=== PATIENT | male | born 1985 | race Caucasian/White ===

== ENCOUNTER 2017-11-17 17:32 | Emergency (ER) | payer OTHER ==
[2017-11-17 17:39] VITALS: BP 144/90
[2017-11-17] MEDS ORDERED: PENICILLIN VK 250 MG TABLET PO STA ×2 (20:33→20:37)
[2017-11-17] MEDS ORDERED: oxyCOD/ACETAMIN 5 MG/325 MG TABLET PO STA (20:33)
--- NOTE | 2017-11-17 20:34 | ED Physician Documentation ---
PD HPI HEENT - Stated complaint Stated Complaint: DENTAL PAIN - Chief complaint Chief Complaint: Heent - History obtained from History obtained from: Patient, Family - History of Present Illness Timing - onset: How many days ago (2) Timing - details: Gradual onset, Still present Location: Tooth, Mouth Worsens: Swalllowing Associated symptoms: Facial swelling. No: Fever Similar symptoms before: Work up / diagnostics, Treatment Recently seen: Not recently seen - Additional information Additional information: Patient is a 31 year old male with no significant past medical history who is presenting to the emergency department for dental pain and facial swelling. patient states that it has been going on for a few days, but he could not get into the dental clinic. Patient states that he has been taking motrin and tylenol at home with littler relief. Review of Systems Constitutional: denies: Fever, Chills Eyes: reports: Reviewed and negative Ears: reports: Ear pain Nose: denies: Congestion, Sinus pressure / pain Throat: reports: Dental pain / toothache, Oral lesions / sores Cardiac: denies: Chest pain / pressure, Palpitations Respiratory: denies: Cough, Wheezing GI: denies: Nausea, Vomiting : reports: Reviewed and negative Skin: reports: Reviewed and negative Musculoskeletal: reports: Reviewed and negative Neurologic: denies: Generalized weakness, Focal weakness, Headache Immunocompromised: denies: Immunocompromised PD PAST MEDICAL HISTORY - Past Surgical History Past Surgical History: No HEENT: Tonsil/Adenoidectomy - Present Medications Home Medications: Ambulatory Orders Medication Instructions Recorded Confirmed Chlorhexidine Gluconate 15 ml MM Q6HR #473 ml 11/17/17 Penicillin V Potassium 500 mg PO Q6HR 10 Days tablet 11/17/17 - Allergies Allergies/Adverse Reactions: Allergies Allergy/AdvReac Type Severity Reaction Status Date / Time No Known Drug Allergies Allergy Verified 11/17/17 17:38 - Social History Does the pt smoke?: Yes Smoking Status: Current every day smoker Does the pt drink ETOH?: Yes Does the pt have substance abuse?: No - Immunizations Immunizations are current?: Yes - POLST Patient has POLST: No PD ED PE NORMAL - Vitals Vital signs reviewed: Yes - General General: Alert and oriented X 3, Well developed/nourished - HEENT HEENT: Atraumatic, PERRL - Neck Neck: Supple, no meningeal sign, No adenopathy - Cardiac Cardiac: RRR, No murmur - Respiratory Respiratory: No respiratory distress - Abdomen Abdomen: Non distended - Derm Derm: Normal color, Warm and dry - Extremities Extremities: No deformity - Neuro Neuro: Alert and oriented X 3, No motor deficit, No sensory deficit, Normal speech - Psych Psych: Normal mood PD ED PE EXPANDED - HEENT HEENT: Dental decay (multiple dental caries, but no drainable abscess or fluid collection, ), Other (facial swelling on left) Results - Vitals Vitals: Vital Signs - 24 hr 11/17/17 17:36 Temperature 36.3 C L Heart Rate 83 Respiratory 18 Rate Blood Pressure 144/90 H O2 Saturation 99 Oxygen O2 Source Room air PD MEDICAL DECISION MAKING - ED course Complexity details: reviewed old records, re-evaluated patient, considered differential, d/w patient, d/w family ED course: patient was seen and examined at bedside. Patient did have a dental pain, but no drainable abscess or fluid collection. Patient was treated with percocet and pen vk. Patient required no further work up and was stable for discharge with outpatient follow up. Departure - Departure Disposition: 01 Home, Self Care Clinical Impression: Dental abscess Condition: Good Instructions: ED Abscess Tooth Follow-Up: primary,care provider [Other] - Within 1 week Prescriptions: Chlorhexidine Gluconate 15 ml MM Q6HR #473 ml Penicillin V Potassium 500 mg PO Q6HR 10 Days tablet Comments: Your symptoms today are being caused by an infected tooth. There is no drainable abscess at this time but you will need to be started on antibiotics. You had your first dose tonight, and will need to take it 4 times a day. You will also need to use the antibiotic mouth rinse. you should use it after every meal and before bed. Ultimately you will need to follow up with your dentist. You should take ibuprofen 600mg and tylenol 1000mg as needed for pain. Discharge Date/Time: 11/17/17 20:42
== END 2017-11-17 20:42 | disposition home or self-care (01) ==
LOC: ED 17:32
DX: K04.7 Periapical abscess without sinus (principal); F17.200 Nicotine dependence, unspecified, uncomplicated
CPT/HCPCS: 99282; 99283; A9270

== ENCOUNTER 2017-11-18 16:11 | Emergency (ER) | payer OTHER ==
[2017-11-18] MEDS ORDERED: HYDROmorphone 1 MG/ML SYRINGE IVP STA ×2 (16:32→17:09)
[2017-11-18] MEDS ORDERED: CLINDAMYCIN 900 MG/50 ML 50 ML IV ONE (16:32)
[2017-11-18] MEDS ORDERED: BUFFERED LIDOCAINE 10 ML SYRINGE SUBQ STA (16:32)
--- NOTE | 2017-11-18 16:34 | ED Physician Documentation ---
PD HPI HEENT - Stated complaint Stated Complaint: LEFT JAW SWELLING - Chief complaint Chief Complaint: Heent - History obtained from History obtained from: Patient - History of Present Illness Timing - onset: Other (Seen here last night for a dental abscess which despite taking penicillin in the interim has worsened significantly with facial swelling but no fevers. Pain is severe.) Review of Systems Constitutional: denies: Fever, Chills, Myalgias Throat: reports: Dental pain / toothache. denies: Sore throat Cardiac: denies: Chest pain / pressure, Palpitations PD PAST MEDICAL HISTORY - Past Medical History Past Medical History: No - Past Surgical History Past Surgical History: Yes HEENT: Tonsil/Adenoidectomy - Present Medications Home Medications: Ambulatory Orders Medication Instructions Recorded Confirmed Chlorhexidine Gluconate 15 ml MM Q6HR #473 ml 11/17/17 Penicillin V Potassium 500 mg PO Q6HR 10 Days tablet 11/17/17 Clindamycin [Cleocin] 300 mg PO Q6H 10 Days capsule 11/18/17 Oxycodone HCl/Acetaminophen 1 - 2 tab PO Q4H PRN #15 tablet 11/18/17 [Percocet 5-325 mg Tablet] - Allergies Allergies/Adverse Reactions: Allergies Allergy/AdvReac Type Severity Reaction Status Date / Time No Known Drug Allergies Allergy Verified 11/17/17 17:38 - Social History Does the pt smoke?: Yes Smoking Status: Current every day smoker Does the pt drink ETOH?: Yes Does the pt have substance abuse?: No - Immunizations Immunizations are current?: Yes - POLST Patient has POLST: No PD ED PE NORMAL - Vitals Vital signs reviewed: Yes - General General: Alert and oriented X 3, No acute distress - HEENT HEENT: Other (On the left mandible there is a crowned molar that is quite tender , there is no sublingual edema but there is a palpable but decreased lateral gingival abscess and overlying facial cellulitis. No trismus.) - Derm Derm: Normal color, Warm and dry - Extremities Extremities: No deformity, No tenderness to palpate, Normal ROM s pain - Neuro Neuro: Alert and oriented X 3, Normal speech - Psych Psych: Normal mood, Normal affect Results - Vitals Vitals: Vital Signs - 24 hr 11/18/17 11/18/17 16:14 16:59 Temperature 36.4 C L Heart Rate 73 73 Respiratory 18 16 Rate Blood Pressure 143/99 H 138/102 H O2 Saturation 99 98 Oxygen O2 Source Room air Procedures - Abscess I&D (location) dental, left mandible Preparation: Lidocaine 1% Incision: Incised with scalpel, Purulent drainage Other: Pt tolerated well PD MEDICAL DECISION MAKING - ED course ED course: He has a worsening dental abscess which is out on the gumline now, he was administered IV clindamycin here and Dilaudid with good improvement in his pain and an incision and drainage was done. Departure - Departure Disposition: 01 Home, Self Care Clinical Impression: Dental abscess Condition: Good Record reviewed to determine appropriate education?: Yes Instructions: ED Abscess Tooth Prescriptions: Clindamycin [Cleocin] 300 mg PO Q6H 10 Days capsule Oxycodone HCl/Acetaminophen [Percocet 5-325 mg Tablet] 1 - 2 tab PO Q4H PRN #15 tablet PRN Reason: Pain Comments: Switch to the new antibiotic, [place]. Return if worse. Do not drink or drive while taking narcotic pain medication. Note that many narcotic pain relievers also contain Tylenol/acetaminophen. Please ensure that your total dose of acetaminophen from all sources does not exceed 3 g (3000 mg) per day. You may get constipated while on this medication. Take a stool softener such as Colace twice a day while you are on it. Also add an enps-xue-xcyvucr laxative such as senna or MiraLAX on any day that you do not have a bowel movement. If you received a narcotic pain medication or sedative while in the emergency department, do not drive for the next 24 hours. Your blood pressure was elevated today on check into the emergency department. This does not mean that you have hypertension, it is a common phenomenon to come to the emergency department and have elevated blood pressure. I recommend that you see your primary care physician within the week to have it rechecked when you are feeling better.
[2017-11-18] MEDS ORDERED: KETOROLAC 60 MG/2 ML VIAL IVP STA (17:09)
[2017-11-18] MEDS ORDERED: oxyCODONE/ACET 5/325 Prepack 4 PO STA (17:12)
[2017-11-18] MEDS ORDERED: ONDANSETRON ODT 4 MG TABLET TL STA (18:23)
[2017-11-18 18:36] VITALS: BP 147/99
== END 2017-11-18 18:49 | disposition home or self-care (01) ==
LOC: ED 16:11
DX: K04.7 Periapical abscess without sinus (principal); R03.0 Elevated blood-pressure reading, without diagnosis of hypertension; F17.200 Nicotine dependence, unspecified, uncomplicated
CPT/HCPCS: 41800; 96365; 96375; 96376; 99283; 99284; J1170; Q0162

== ENCOUNTER 2020-01-29 08:09 | Emergency (ER) | payer OTHER ==
[2020-01-29] MEDS ORDERED: KETOROLAC 60 MG/2 ML VIAL IM STA (09:08)
[2020-01-29] MEDS ORDERED: HYDROmorphone 1 MG/ML SYRINGE IM STA (09:08)
--- NOTE | 2020-01-29 09:12 | ED Physician Documentation ---
History of Present Illness - Stated complaint Stated Complaint: LOW BACK PAIN - Chief complaint Chief Complaint: Back Pain - History obtained from History obtained from: Patient, Family - Additonal information Additional information: Patient comes emergency department complaining of low back pain Which started during his run this morning. Patient states that he had been on the treadmill and started to notice pain especially in his right lower back. He states that he had already had pain going down his right leg for the last week, but that it got worse when the back pain started. He states he switched to the elliptical machine thinking it would be better, but that the pain got worse. He states he had to stop exercising and that he found it difficult to stand up straight because it hurts so much. Patient states that he has a slight bit of numbness in his right anterior tibial area, but otherwise, no paresthesias elsewhere. Patient denies any loss of bowel or bladder control. He states he has had intermittent issues with low back pain, especially on the right side and that symptoms have been similar previously. He states the last episode was about a year ago. Patient has previously gotten cortisone shots for this. Patient denies any distinct back injuries in the past. 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 He states that he is otherwise healthy. He is employed by the [employer], and was at work when symptoms started. Review of Systems Ten Systems: 10 systems reviewed and negative Constitutional: reports: Reviewed and negative Eyes: reports: Reviewed and negative Ears: reports: Reviewed and negative Nose: reports: Reviewed and negative Throat: reports: Reviewed and negative Cardiac: reports: Reviewed and negative Respiratory: reports: Reviewed and negative GI: reports: Reviewed and negative : reports: Reviewed and negative Skin: reports: Reviewed and negative Musculoskeletal: reports: Back pain, Extremity pain Neurologic: reports: Reviewed and negative Psychiatric: reports: Reviewed and negative Endocrine: reports: Reviewed and negative Immunocompromised: reports: Reviewed and negative PD PAST MEDICAL HISTORY - Past Medical History Past Medical History: Yes - Past Surgical History Past Surgical History: Yes HEENT: Tonsil/Adenoidectomy - Present Medications Home Medications: Ambulatory Orders Medication Instructions Recorded Confirmed No Known Home Medications 01/29/20 01/29/20 - Allergies Allergies/Adverse Reactions: Allergies Allergy/AdvReac Type Severity Reaction Status Date / Time No Known Drug Allergies Allergy Verified 01/29/20 08:30 - Social History Does the pt smoke?: Yes Smoking Status: Current every day smoker Does the pt drink ETOH?: Yes Does the pt have substance abuse?: No - Immunizations Immunizations are current?: Yes - POLST Patient has POLST: No PD ED PE NORMAL - Vitals Vital signs reviewed: Yes - General General: Alert and oriented X 3, No acute distress - HEENT HEENT: Atraumatic, PERRL, EOMI, Moist mucous membranes - Neck Neck: Supple, no meningeal sign - Cardiac Cardiac: RRR, No murmur - Respiratory Respiratory: No respiratory distress, Clear bilaterally - Back Back: No CVA TTP, No spinal TTP, Other (Patient has moderate tenderness palpation over the lumbar paraspinal musculature on the right. No tenderness on the left. 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 I discussed with the patient and his that if the symptoms are not improved in the next couple of weeks, he should talk to his primary doctor about potentially getting an MRI done for further evaluation. We have discussed home management of symptoms, as well as the usual indications for return.
[2020-01-29 09:56] VITALS: BP 128/98
== END 2020-01-29 09:56 | disposition home or self-care (01) ==
LOC: ED 08:09
DX: F17.210 Nicotine dependence, cigarettes, uncomplicated (principal); M54.5 Low back pain
CPT/HCPCS: 90471; 96372; 99283; 99284; J1170

== ENCOUNTER 2021-09-16 16:17 | Emergency (ER) | payer OTHER ==
[2021-09-16 16:25] VITALS: BP 123/78
[2021-09-16] MEDS ORDERED: HYDROmorphone 1 MG/ML CARPUJECT IM STA (17:25)
[2021-09-16] MEDS ORDERED: TRIAMCINOLONE 40 MG/ML VIAL IM STA (17:25)
[2021-09-16] MEDS ORDERED: BUPIVACAINE 0.5% PF 10 ML VIAL IM ONE (17:25)
[2021-09-16] MEDS ORDERED: KETOROLAC 60 MG/2 ML VIAL IM STA (17:25)
--- NOTE | 2021-09-16 17:27 | ED Physician Documentation ---
PD HPI BACK PAIN - Stated complaint Stated Complaint: BACK PAIN - Chief complaint Chief Complaint: Back Pain - History obtained from History obtained from: Patient - Additional information Additional information: 35-year-old gentleman with chronic recurrent back issues. He presents with right lower back pain going on for the last week radiating to the leg. It is similar to prior flares. There is no associated weakness, numbness of the leg or saddle area. He has had some tingling in the right leg. No fevers or incontinence. He gets this about every year or so. It is much worse with bending or twisting. Review of Systems Constitutional: reports: Reviewed and negative Eyes: reports: Reviewed and negative Ears: reports: Reviewed and negative PD PAST MEDICAL HISTORY - Past Surgical History Past Surgical History: Yes HEENT: Tonsil/Adenoidectomy - Present Medications Home Medications: Ambulatory Orders Medication Instructions Recorded Confirmed Hydrocodone/Acetaminophen 1 - 2 each PO Q6H PRN #14 tablet 01/29/20 [Hydrocodon-Acetaminophen 5-325] HYDROcod/ACETAM 5/325 [[place] 5/325] 1 - 2 tab PO Q6H PRN #15 tablet 09/16/21 - Allergies Allergies/Adverse Reactions: Allergies Allergy/AdvReac Type Severity Reaction Status Date / Time No Known Drug Allergies Allergy Verified 09/16/21 16:22 - Social History Does the pt smoke?: Yes Smoking Status: Current every day smoker Does the pt drink ETOH?: Yes Does the pt have substance abuse?: No - Immunizations Immunizations are current?: Yes - POLST Patient has POLST: No PD ED PE NORMAL - Vitals Vital signs reviewed: Yes - General General: Alert and oriented X 3, No acute distress - Abdomen Abdomen: Normal bowel sounds, Soft, Non tender - Back Back: Other (There is a area of significant muscular tenderness in the right low back above the pelvic brim, no midline spinal tenderness.) - Extremities Extremities: Other (The patient has equal and normal Achilles and patellar reflexes bilaterally. Normal sensation in all areas of the legs. Patient denies saddle anesthesia. Normal strength in flexion-extension at the ankles, knees, and flexion of the hips.) - Neuro Neuro: Alert and oriented X 3, Normal speech Results - Vitals Vitals: Vital Signs - 24 hr 09/16/21 16:22 Temperature 36.5 C Heart Rate 85 Respiratory 16 Rate Blood Pressure 123/78 O2 Saturation 98 Oxygen O2 Source Room air Procedures - General procedure General procedure: Trigger point injection done in the right low back to the area of maximal tenderness after alcohol prep with a mixture of 9 mL of 0.5% bupivacaine and 1 mL with 40 mg of triamcinolone. PD MEDICAL DECISION MAKING - ED course ED course: This patient has seemingly uncomplicated musculoskeletal back pain. The patient has no "red flags." Specifically denies IV drug use, fevers, incontinence, saddle anesthesia. Spinal epidural abscess was considered, given that the patient has no fever, is not diabetic, has no spinal tenderness, does not use IV drugs, and has no bilateral neurologic symptoms, the diagnosis of spinal epidural abscess is considered exceedingly unlikely. I am prescribing a short course of short-acting opioid pain medication for this patient. 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 I have discussed that the opioids are for short term therapy only, and will not be refilled from the ED. Departure - Departure Disposition: 01 Home, Self Care Clinical Impression: Back pain Qualifiers: Back pain location: low back pain Chronicity: acute Back pain laterality: right Sciatica presence: with sciatica Sciatica laterality: sciatica of right side Qualified Code(s): M54.41 - Lumbago with sciatica, right side Condition: Good Record reviewed to determine appropriate education?: Yes Instructions: ED Neck Back Pain General Prescriptions: HYDROcod/ACETAM 5/325 [[place] 5/325] 1 - 2 tab PO Q6H PRN #15 tablet PRN Reason: Pain Comments: [place] for your recurrent low back pain. Return for new or worsening symptoms. Pain medications were sent to [facility] in [place]. I am prescribing a short course of narcotic pain medication for you. These are p otentially dangerous and addictive medications that should be used carefully. These medications may constipate you. Take an eyyu-bpe-vsiwiyt stool softener (docusate) twice daily with plenty of water while taking these medications. If you go 24 hours without a bowel movement, take [id number] miralax, per package instructions. Do not drink or drive while taking these medications. If you received narcotic or sedating medications while in the emergency department, do not drive for 24 hours. Store this medication in a safe, secure place and out of reach of children. It is a violation of federal law to give or sell this medication to another person or to use in a manner other than prescribed. The ED will not refill narcotic prescriptions, including prescriptions lost or stolen. To dispose of unwanted medications: 1. [facility] at [address] in [place] has a medication drop box. They accept prescription medications (in pill form) Monday through Monday 9:00 a.m. to 5:00 p.m. 2. The [facility] accepts prescription medications (in pill form only) for disposal year round. Call for more information. 3. Contact the [facility] for the next [facility] sponsored prescription drug collection event. , [phone], or [phone]; Note that many narcotic pain relievers also contain Tylenol/acetaminophen. Please ensure that your total dose of acetaminophen from all sources does not exceed 3 g (3000 mg) per day. Forms: Activity restrictions
== END 2021-09-16 17:59 | disposition home or self-care (01) ==
LOC: ED 16:17
DX: M54.51 Vertebrogenic low back pain (principal); F17.200 Nicotine dependence, unspecified, uncomplicated
CPT/HCPCS: 20552; 96372; 99283; J1170

== ENCOUNTER 2023-05-22 19:49 | Emergency (ER) | payer OTHER ==
[2023-05-22 20:00] VITALS: BP 146/93
[2023-05-22 20:13] LABS: BASOPHILS % (AUTO) 0.6 %; EOSINOPHILS # (AUTO) 0.2 10^3/uL (0.0-0.7); HCT - HEMATOCRIT 42.7 % (42.0-52.0); LYMPHOCYTES # (AUTO) 2.2 10^3/uL (1.5-3.5); LYMPHOCYTES % (AUTO) 32.7 %; MEAN CORPUSCULAR HEMOGLOBIN 28.6 pg (27.0-31.0); MEAN CORPUSCULAR HGB CONC 35.1 g/dL (32.0-36.0); MEAN CORPUSCULAR VOLUME 81.5 fL (80.0-94.0); MONOCYTES # (AUTO) 0.5 10^3/uL (0.0-1.0); MONOCYTES % (AUTO) 7.9 %; NEUTROPHILS # (AUTO) 3.6 10^3/uL (1.5-6.6); NEUTROPHILS % (AUTO) 55.5 %; PLT - PLATELET COUNT 326 10^3/uL (130-450); RED BLOOD COUNT 5.24 10^6/uL (4.70-6.10); RED CELL DISTRIBUTION WIDTH 12.7 % (12.0-15.0); WHITE BLOOD COUNT 6.6 x10^3/uL (4.8-10.8)
[2023-05-22 20:30] LABS: ACETAMINOPHEN < 10 ug/mL (10-30); ALBUMIN 4.1 g/dL (3.2-5.5); ALBUMIN/GLOBULIN RATIO 1.1 (1.0-2.2); ALKALINE PHOSPHATASE 76 IU/L (42-121); ALT ALANINE AMINOTRANSFERASE 44 IU/L (10-60); AST ASPARTATE AMINOTRANSFERASE 27 IU/L (10-42); BILIRUBIN,TOTAL 0.4 mg/dL (0.2-1.0); BUN - BLOOD UREA NITROGEN 17 mg/dL (6-20); CARBON DIOXIDE - CO2 24 mmol/L (21-32); CHLORIDE 103 mmol/L (101-111); CREATININE 1.3 mg/dL (0.6-1.2); ETOH - ETHANOL < 5.0 mg/dL; GFR - MDRD 62 (>89); GLUCOSE 114 mg/dL (70-100); LIPASE 30 U/L (22-51); POTASSIUM 3.2 mmol/L (3.5-5.0); SALICYLATE < 6.0 mg/dL; SODIUM 136 mmol/L (135-145); TOTAL PROTEIN 7.7 g/dL (6.7-8.2)
== END 2023-05-22 19:58 | disposition left against medical advice (07) ==
LOC: ED 19:49
DX: Z53.21 Procedure and treatment not carried out due to patient leaving prior to being seen by health care provider (principal)
CPT/HCPCS: 36415; 80053; 80307; 80320; 80329; 83690; 84443; 85025

== ENCOUNTER 2023-05-22 21:06 | Emergency (ER) | payer OTHER ==
[2023-05-22 21:26] VITALS: BP 130/80
[2023-05-22 23:53] LABS: MUDS CUTOFF CONCENTRATIONS CUTOFF CONC BELOW:
[2023-05-22 23:57] LABS: BILIRUBIN,URINE NEGATIVE (NEGATIVE); GLUCOSE, URINE (UA) NEGATIVE (NEGATIVE); KETONES,URINE (UA) NEGATIVE (NEGATIVE); LEUKOCYTE ESTERASE, URINE NEGATIVE (NEGATIVE); NITRITE,URINE NEGATIVE (NEGATIVE); OCCULT BLOOD,URINE TRACE-INTA (NEGATIVE); PH,URINE 5.5 PH (5.0-7.5); PROTEIN,URINE NEGATIVE (NEGATIVE); UROBILINOGEN,URINE 0.2 (NORMAL) E.U./dL (NORMAL)
[2023-05-23 00:12] LABS: AMPHETAMINE SCREEN,URINE NEGATIVE (NEGATIVE); BARBITURATE SCREEN,UR NEGATIVE (NEGATIVE); BENZODIAZEPINES SCREEN, URINE NEGATIVE (NEGATIVE); CLARITY,URINE CLEAR (CLEAR); COCAINE SCREEN URINE NEGATIVE (NEGATIVE); METHADONE SCREEN, URINE NEGATIVE (NEGATIVE); METHAMPHETAMINES SCREEN, URINE NEGATIVE (NEGATIVE); OPIATE SCREEN, URINE NEGATIVE (NEGATIVE); OXYCODONE SCREEN, URINE NEGATIVE (NEGATIVE); PROPOXYPHENE SCREEN, URINE NEGATIVE (NEGATIVE); THC CANNABINOID SCREEN, URINE NEGATIVE (NEGATIVE); TRICYCLIC ANTIDEPRESSANT,URINE NEGATIVE (NEGATIVE)
--- NOTE | 2023-05-23 01:09 | ED Physician Documentation ---
PD HPI MHE - Stated complaint Stated Complaint: SI - Chief complaint Chief Complaint: MHE - Additional information Additional information: The patient checked into the emergency department for suicidal ideation, apparently. However, before I could go into his room to see him, he decided he would like to leave voluntarily and that he was no longer feeling suicidal. This is per nurse report as the patient had already left the emergency de partment before I could talk to him at all. PD PAST MEDICAL HISTORY - Past Medical History Musculoskeletal: Chronic back pain - Past Surgical History Past Surgical History: Yes HEENT: Tonsil/Adenoidectomy - Present Medications Home Medications: Ambulatory Orders Medication Instructions Recorded Confirmed No Known Home Medications 06/29/22 06/29/22 - Allergies Allergies/Adverse Reactions: Allergies Allergy/AdvReac Type Severity Reaction Status Date / Time No Known Drug Allergies Allergy Verified 05/22/23 21:21 - Social History Does the pt smoke?: Yes Smoking Status: Current every day smoker Does the pt drink ETOH?: Yes Does the pt have substance abuse?: No - Immunizations Immunizations are current?: Yes - POLST Patient has POLST: No Results - Vitals Vitals: Vital Signs - 24 hr 05/22/23 21:21 Temperature 36.5 C Heart Rate 100 Respiratory 18 Rate Blood Pressure 130/80 O2 Saturation 98 Oxygen O2 Source Room air - Labs Labs: Laboratory Tests 05/22/23 05/22/23 23:48 23:50 Urine Color YELLOW Urine Clarity CLEAR Urine pH 5.5 Ur Specific [place] 1.025 Urine Protein NEGATIVE Urine Glucose (UA) NEGATIVE Urine Ketones NEGATIVE Urine Occult Blood TRACE-INTA Urine Nitrite NEGATIVE Urine Bilirubin NEGATIVE Urine Urobilinogen 0.2 (NORMAL) Ur Leukocyte Esterase NEGATIVE Ur Microscopic Review NOT INDICATED Urine Culture Comments NOT INDICATED Urine Opiates Screen NEGATIVE Ur Oxycodone Screen NEGATIVE Urine Methadone Screen NEGATIVE Ur Propoxyphene Screen NEGATIVE Ur Barbiturates Screen NEGATIVE Ur Tricyclics Screen NEGATIVE Ur Phencyclidine Scrn NEGATIVE Ur Amphetamine Screen NEGATIVE U Methamphetamines Scrn NEGATIVE U Benzodiazepines Scrn NEGATIVE Urine Cocaine Screen NEGATIVE U Cannabinoids Screen NEGATIVE SARS-CoV-2 (PCR) NOT DETECTED Departure - Departure Disposition: ED Left Without Being Seen
== END 2023-05-23 00:59 | disposition left against medical advice (07) ==
LOC: ED 21:06
DX: Z53.21 Procedure and treatment not carried out due to patient leaving prior to being seen by health care provider (principal); Z20.822 Contact with and (suspected) exposure to COVID-19
CPT/HCPCS: 80053; 80306; 80307; 80320; 80329; 81001; 81003; 83690; 84443; 85025; 87086